=== PATIENT | male | born 1970 | race American Indian/Alaskan Native ===

== ENCOUNTER → 2016-09-17 | Outpatient (CLI) | payer OTHER ==
[2016-09-17 13:59] LABS: ALKALINE PHOSPHATASE 88 U/L (45-117); ALT/SGPT 34 U/L (12-78); AMYLASE 66 U/L (25-115); AST/SGOT 12 U/L (15-37)
== END | disposition home or self-care (01) ==
LOC: C.LABMFLN 11:51
PROVIDERS: ATTEND Family Medicine
DX: R10.13 Epigastric pain (principal)

== ENCOUNTER 2017-05-09 23:21 | Emergency (ER) | payer OTHER ==
[~2017-05-09] VITALS: Ht 188 cm; Wt 146.0 kg
[2017-05-09 23:45] VITALS: TEMP 36.7; Ht 188 cm; Wt 146.0 kg
[2017-05-10] MEDS ORDERED: DIAZEPAM INJ 5 MG/ML 2 ML CARP IM STA (00:05)
[2017-05-10] MEDS ORDERED: MoRPHine SULFATE 10 MG/ML CARP/VIAL IM STA (00:05)
--- NOTE | 2017-05-10 00:11 | EMERGENCY ROOM VISIT NOTE ---
History Report prepared by Stanley: Ming Adame Under the Supervision of: Dr. Elan Madera M.D. First contact with patient: 23:54 Chief Complaint: LEG PAIN,LEG INJURY Stated Complaint: BAD PAIN DOWN R LEG, AND NUMBNESS History of Present Illness The patient is a 46 year old male who presents to the Emergency Room with complaints of worsening lower back pain that began in February 2017. He rates his pain as a 10/10 in severity. The patient states he has been off of work since February 17 due to his onset of lower back pain. He reports that the pain has worsened since to the point where is unable to walk without pain. The patient states that he has been taking Vicodin 4 times a day and has had two rounds of steroids for his symptoms without any relief. The patient states that the pain has been radiating into the outside of the right lower extremity for the last week. He reports he went to [place] last week where he had an x-ray and CT scan done. He reports that within the last two days his pain has worsened and he has been experiencing a numbing sensation in his toes. The patient denies abdominal pain, constipation, diarrhea, incontinence, fevers, drug use. The patient reports he has a history of bulging herniated discs, thoracic injuries, and stenosis. He reports he had laser spine surgery in 2013. Source of History: patient Onset: February 2017 Position: back (lower) Symptom Intensity: 10/10 Timing: worsening Modifying Factors (Worsening): other (walking) Modifying Factors (Relieving): other (Steroids, Vicodin) Associated Symptoms: + numbness (toes), No fevers, No abdominal pain, No diarrhea Note: Associated symptoms: pain radiating into right leg Review of Systems See HPI for pertinent positives & negatives. A total of 10 systems reviewed and were otherwise negative. Past Medical & Surgical Medical Problems: (1) Herniated disc (2) Stenosis, spinal, thoracic Family History Patient reports no known family medical history. Social History Smoking Status: Never Smoker Drug Use: none Marital Status: Housing Status: lives with significant other Occupation Status: employed Current/Historical Medications Scheduled Atenolol (Atenolol), 100 MG PO DAILY Furosemide (Lasix), 60 MG PO DAILY Lisinopril (Zestril), 40 MG PO DAILY Naproxen (Naprosyn), 500 MG PO BID Scheduled PRN Hydrocodone/Acetaminophen ([place] 10/325 Tab), 2 TABS PO BID PRN for Pain Allergies Coded Allergies: No Known Allergies (Unverified , 05/10/17) Physical Exam Vital Signs Date Time Temp Pulse Resp B/P (MAP) Pulse Ox O2 Delivery O2 Flow Rate FiO2 05/10/17 04:39 71 18 134/79 95 05/10/17 04:02 71 18 147/98 96 Room Air 05/10/17 02:02 67 18 139/96 96 Room Air 05/10/17 00:56 68 18 152/95 97 Room Air 05/09/17 23:45 36.7 69 18 151/108 97 Room Air Physical Exam GENERAL: Patient is uncomfortable appearing and in moderate distress. HEENT: No acute trauma, normocephalic atraumatic, mucous membranes moist, no nasal congestion, no scleral icterus. NECK: No stridor, no adenopathy, no meningismus, trachea is midline. LUNGS: No dyspnea. Clear to auscultation and equal bilaterally. No wheeze, no rhonchi. HEART: Regular rate and rhythm. No murmurs, rubs, gallops appreciated. ABDOMEN: Soft, nontender, bowel sounds positive, no masses appreciated, no peritonitis. BACK: No midline tenderness, no CVA tenderness EXTREMITIES: Normal motion all extremities, no cyanosis, no edema. NEUROLOGIC: Alert and oriented, no focal weakness, cranial nerves grossly intact. Very slow movements due to pain. Decreased plantar flexion of the right foot. Decreased sensation of right lateral toes. Pain with range of motion of right leg. SKIN: No rash, no jaundice, no diaphoresis. Medical Decision & Procedures ER Provider Diagnostic Interpretation: Per Stat Rad and reviewed by myself: MRI L SPINE : T12-L1: Mild broad-based disc bulge. L1-L2: Mild broad-based disc bulge. No central spinal stenosis or neural foraminal stenosis. L3-4: Posterior annular fissure mild broad-based disc bulge. No central or neural foraminal stenosis. L4-5: Large central disc protrusion/extrusion with maximum AP diameter measuring 9 mm in maximal width measuring 13 mm. There is an extruded disc fragment that extends into the right lateral recess. Severe central spinal stenosis, severe bilateral lateral recess stenosis with impingement on the traversing nerve roots. No neural foraminal stenosis. Hemangioma in T12 and L2. Normal alignment of the lumbar spine. No acute fracture or subluxation. No bone marrow edema. Conus ends at L1. No abnormal cord signal. Radiologist: Nico Hart MD Laboratory Results 05/10/17 02:24 Red Blood Count 5.07, Mean Corpuscular Volume 76.5, Mean Corpuscular Hemoglobin 24.5, Mean Corpuscular Hemoglobin Concent 32.0, Mean Platelet Volume 10.1, Neutrophils (%) (Auto) 55.5, Lymphocytes (%) (Auto) 27.6, Monocytes (%) (Auto) 7.5, Eosinophils (%) (Auto) 8.7, Basophils (%) (Auto) 0.4, Neutrophils # (Auto) 5.48, Lymphocytes # (Auto) 2.72, Monocytes # (Auto) 0.74, Eosinophils # (Auto) 0.86, Basophils # (Auto) 0.04 05/10/17 02:24 Test 05/10/17 02:24 White Blood Count 9.87 K/uL (4.8-10.8) Red Blood Count 5.07 M/uL (4.7-6.1) Hemoglobin 12.4 g/dL (14.0-18.0) Hematocrit 38.8 % (42-52) Mean Corpuscular Volume 76.5 fL (80-100) Mean Corpuscular Hemoglobin 24.5 pg (25-34) Mean Corpuscular Hemoglobin Concent 32.0 g/dl (32-36) Platelet Count 260 K/uL (130-400) Mean Platelet Volume 10.1 fL (7.4-10.4) Neutrophils (%) (Auto) 55.5 % Lymphocytes (%) (Auto) 27.6 % Monocytes (%) (Auto) 7.5 % Eosinophils (%) (Auto) 8.7 % Basophils (%) (Auto) 0.4 % Neutrophils # (Auto) 5.48 K/uL (1.4-6.5) Lymphocytes # (Auto) 2.72 K/uL (1.2-3.4) Monocytes # (Auto) 0.74 K/uL (0.11-0.59) Eosinophils # (Auto) 0.86 K/uL (0-0.5) Basophils # (Auto) 0.04 K/uL (0-0.2) RDW Standard Deviation 50.6 fL (36.4-46.3) RDW Coefficient of Variation 18.1 % (11.5-14.5) Immature Granulocyte % (Auto) 0.3 % Immature Granulocyte # (Auto) 0.03 K/uL (0.00-0.02) Anion Gap 7.0 mmol/L (3-11) Est Creatinine Clear Calc Drug Dose 137.7 ml/min Estimated GFR () 102.7 Estimated GFR (Non- 88.6 BUN/Creatinine Ratio 22.4 (10-20) Calcium Level 8.7 mg/dl (8.5-10.1) Laboratory results as reviewed by me. Medications Administered Medications (Trade) Dose Ordered Sig/Nidia Route Start Time Stop Time Status Last Admin Dose Admin Diazepam (Valium Inj) 10 mg NOW STAT IM 05/10/17 00:05 05/10/17 00:06 DC 05/10/17 00:24 10 MG Morphine Sulfate (MoRPHine SULFATE INJ) 10 mg NOW STAT IM 05/10/17 00:05 05/10/17 00:06 DC 05/10/17 00:22 10 MG Morphine Sulfate (MoRPHine SULFATE INJ) 10 mg NOW STAT IV 05/10/17 02:11 05/10/17 02:12 DC 05/10/17 02:25 10 MG Dexamethasone Sodium Phosphate (Dexamethasone Inj Pf) 10 mg NOW ONCE IV 05/10/17 02:30 05/10/17 02:31 DC 05/10/17 02:34 10 MG Morphine Sulfate (MoRPHine SULFATE INJ) 10 mg NOW STAT IV 05/10/17 04:01 05/10/17 04:02 DC 05/10/17 04:13 10 MG ED Course 2358: The patient was evaluated in room A03. A complete history and physical exam was performed. 0046: I reevaluated the patient and he is doing well. 0115: The patient is heading over to MRI. 0207: I reevaluated the patient and he notes return of pain. He feels as if his leg is more numb. He is agreeable to IV with pain medications. 0258: I discussed the patients case with Dr. Cueto, [facility]. He notes he is not available to be involved in the patients case. He is not geothermal operations engineer. (Of note there is no orthopedic surgeon geothermal operations engineer. He was just being helpful calling back.) 0306: I reevaluated the patient and he is feeling a little better. He is agreeable to transfer and is open to any location. 0348: I discussed the patients case with [facility] . He agrees that the patient should be transferred to them. He states the patient should be transferred to the ER. 0354: I discussed the patients case with [facility]. He understands the patients condition and agrees to accept the patient. The patient will be further evaluated. 0357: I reevaluated the patient and I gave options of private vehicle vs. ambulance. I discussed the risks of both. He and his would prefer to take a private vehicle. The patient is ready for transfer. Medical Decision Differential: Musculoskeletal, Disc Herniation, Fracture, Cord Compression, Discitis, Infectious, Aortic Pathology, Renal Colic, UTI/Pyelonephritis, Acute Exacerbation of Chronic Pain, Sciatica, Cauda Equina, amongst other pathologies entertained. Pleasant 46 yr old male with history chronic thoracic back pain followed with PCP/Pain management arrives for new issue of low back pain. Few weeks gradually worsening low back pain now over last 24 hours rapid worsening with right sciatica, mild foot plantar weakness and lateral sensation deficits of foot. No bowel/bladder issues. Unable to walk other than with walker which is new in last 24 hours. Given this felt that MRI indicated. Pain controlled with Morphine IM/IV x 3 and valium IM x 1 with decent comfort obtained after these. MRI with large L4L5 central disc bulge causing bilateral issues but worse on right. Given 10mg IV Decadron for these findings. Reviewed with our spine surgeon here who unfortunately is unable to get involved in case as going out of town but he advised I discuss case with facility that has spinal surg as this may be urgent surgical need. Discussed with [facility] who accept for transfer. Patient and prefer to go be private vehicle. I discussed pros/ cons of this and they are aware. Reviewed importance of going directly to ED. Sent with all imaging/labs. Medication Reconcilliation Current Medication List: was personally reviewed by me Blood Pressure Screening Patient's blood pressure: Elevated blood pressure Blood pressure disposition: Elevated BP felt to be situational Consults Time Called: [phone] Consulting Physician: [facility] Returned Call: [phone] I discussed the patients case with [facility]. He notes he is not available to be involved in the patients case. He is not geothermal operations engineer. (Of note there is no orthopedic surgeon geothermal operations engineer. He was just being helpful calling back.) Additional Consults: Time Called: [phone] Consulted Physician: [facility]. Returned Call: [phone] Additional Comments: I discussed the patients case with [facility]. He agrees that the patient should be transferred to them. He states the patient should be transferred to the ER. Time Called: [phone] [facility] Returned Call: [phone] Additional Comments: I discussed the patients case with [facility]. He understands the patients condition and agrees to accept the patient. The patient will be further evaluated. Impression Primary Impression: L4-L5 disc bulge Additional Impressions: Spinal stenosis at L4-L5 level Right leg weakness Right-sided low back pain with right-sided sciatica Scribe Attestation The scribe's documentation has been prepared under my direction and personally reviewed by me in its entirety. I confirm that the note above accurately reflects all work, treatment, procedures, and medical decision making performed by me. Departure Information Dispostion Discharge/Transfer to [facility] Referrals No Doctor, Assigned (PCP) Patient Instructions My [facility] Additional Instructions Go directly to [facility] in [place], [place]. Do not eat nor drink anything until seen by spinal surgery. Problem Qualifiers
[2017-05-10] MEDS ORDERED: TNR50 PO (00:47)
[2017-05-10] MEDS ORDERED: FURO-85 PO (00:48)
[2017-05-10] MEDS ORDERED: LISI40TA PO (00:48)
[2017-05-10] MEDS ORDERED: NAPR-1169 PO (00:49)
[2017-05-10] MEDS ORDERED: HYDR-4383 PO (00:50)
[2017-05-10] MEDS ORDERED: MoRPHine SULFATE 10 MG/ML CARP/VIAL IV STA ×2 (02:11→04:01)
[2017-05-10] MEDS ORDERED: DEXAMETHASONE **PF** INJ 10 MG/ML VIAL IV ONE (02:30)
[2017-05-10 02:35] LABS: BASO % 0.4 %; BASO ABS # 0.04 K/uL (0-0.2); EOS % 8.7 %; EOS ABS # 0.86 K/uL (0-0.5); HEMATOCRIT 38.8 % (42-52); HEMOGLOBIN 12.4 g/dL (14.0-18.0); IG# 0.03 K/uL (0.00-0.02); LYMPH % 27.6 %; LYMPH ABS # 2.72 K/uL (1.2-3.4); MEAN CELL VOLUME 76.5 fL (80-100); MEAN CORPUSCULAR HEMOGLOBIN 24.5 pg (25-34); MEAN PLATELET VOLUME 10.1 fL (7.4-10.4); MONO % 7.5 %; MONO ABS # 0.74 K/uL (0.11-0.59); NEUT % 55.5 %; NEUT ABS # 5.48 K/uL (1.4-6.5); PLATELET COUNT 260 K/uL (130-400); RED CELL DISTRIBUTION WIDTH CV 18.1 % (11.5-14.5); RED CELL DISTRIBUTION WIDTH SD 50.6 fL (36.4-46.3); WHITE BLOOD COUNT 9.87 K/uL (4.8-10.8)
[2017-05-10 03:01] LABS: CALCIUM 8.7 mg/dl (8.5-10.1)
[2017-05-10 04:39] VITALS: BP 134/79; PULSE 71; O2SAT 95
--- NOTE | 2017-05-10 06:43 | DIAGNOSTIC IMAGING REPORT ---
LUMBAR SPINE W/O CONTRAST CLINICAL HISTORY: 46 years-old Male presenting with right low back pain with leg weakness, rapid progression 24 hour, off work, sharp shooting pain into the right leg, numbness, muscle spasms, worsening pain, numbness is new since , history of injections. TECHNIQUE: Multisequence, multiplanar MR imaging of the lumbar spine was performed without the use of intravenous contrast. IV contrast: None. COMPARISON: None. FINDINGS: Localizer images: Unremarkable. Normal lumbar lordosis. T1 hyperintense fat-containing lesion in the T12 vertebral body consistent with benign hemangioma. Vertebral bodies otherwise maintain normal height, alignment, and bone marrow signal intensity. Intervertebral disc desiccation noted from L3-4 through L5-S1 with several disc abnormalities as detailed below: L1-2: Minimal disc bulge. Annular fissure suspected. No significant neural foraminal or spinal canal stenosis. L2-3: Annular fissure suspected. No neural foraminal or spinal canal narrowing. L3-4: Annular fissure suspected. Disc desiccation without height loss. No neural foraminal or spinal canal stenosis. L4-5: Central disc protrusion measuring 8 mm in width with resulting severe effacement of the paracentral anterior thecal sac. Minimal extrusion of a fragment in the right paracentral epidural space with slight caudal migration and resulting effacement of the right lateral recess at L5. Resulting thickening of the transiting right L5 nerve root. The right L4 nerve root appears spared. Less severe mass effect on the transiting left L5 nerve root. Mild facet arthropathy without significant neural foraminal narrowing. L5-S1: Mild disc bulge without significant neural foraminal or spinal canal narrowing. Spinal cord ends in good position at the superior endplate of L1. Cauda equina crowding secondary to the disc protrusion at L4-5. Otherwise the cauda equina is normal. Paraspinal musculature normal. Nonspecific subcutaneous edema in the lumbar region. IMPRESSION: Severe spinal canal stenosis at the level of L4-5 secondary to a focal disc protrusion. Correlate clinically for cauda equina syndrome. Additionally, mass effect on the transiting L5 nerve roots, right greater than left. The report will be called/faxed according to standard departmental protocol. Electronically signed by: Brent Celis M.D. 05/10/2017 6:42 AM Dictated Date/Time: 05/10/2017 6:32 AM
== END 2017-05-10 04:39 | disposition short-term general hospital (02) ==
LOC: C.EDB 23:23 → C.EDA 05-10 04:39
DX: M51.16 Intervertebral disc disorders with radiculopathy, lumbar region (principal); R03.0 Elevated blood-pressure reading, without diagnosis of hypertension; Z87.828 Personal history of other (healed) physical injury and trauma; Z87.39 Personal history of other diseases of the musculoskeletal system and connective tissue